=== PATIENT | male | born 1995 | race American Indian/Alaskan Native ===

== ENCOUNTER 2018-07-20 17:50 | Emergency (ER) | payer OTHER ==
[~2018-07-20] VITALS: Ht 170.2 cm; Wt 104.7 kg
[2018-07-20 18:19] VITALS: BP 142/82
[2018-07-20] MEDS ORDERED: ketorolac trometh inj. 60 MG/2 ML VIAL IM STA (19:00)
[2018-07-20] MEDS ORDERED: dexamethasone 4mg tablet PO STA (19:00)
== END 2018-07-20 19:29 | disposition home or self-care (01) ==
LOC: ER 17:51
DX: S50.812A Abrasion of left forearm, initial encounter (principal); M54.5 Low back pain; F12.90 Cannabis use, unspecified, uncomplicated; V09.9XXA Pedestrian injured in unspecified transport accident, initial encounter; Y93.01 Activity, walking, marching and hiking; Y92.89 Other specified places as the place of occurrence of the external cause; Y99.9 Unspecified external cause status
CPT/HCPCS: 96372; 99283; J1885; J8540